=== PATIENT | male | born 2000 | race African-American/Black ===

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

== ENCOUNTER 2023-08-13 17:39 | Emergency (ER) | payer OTHER ==
[2023-08-13 17:56] VITALS: BP 124/72; PULSE 75; RESP 18; TEMP 97.8; BMI 24.3
== END 2023-08-13 19:03 | disposition home or self-care (01) ==
LOC: JER 17:39
DX: M79.661 Pain in right lower leg (principal); V09.20XA Pedestrian injured in traffic accident involving unspecified motor vehicles, initial encounter
CPT/HCPCS: 73130-TC-RT-FY; 73590-TC-RT-FY; 99284-25